=== PATIENT | male | born 1940 | race Caucasian/White ===

== ENCOUNTER 2020-09-28 14:24 | Emergency (ER) | payer MEDICARE, BC, SELFPAY ==
[2020-09-28 15:01] VITALS: BP 138/81; PULSE 64; RESP 18; TEMP 36.9; O2SAT 98; BMI 24.4
--- NOTE | 2020-09-28 17:48 | XRR_ITS ---
PROCEDURE INFORMATION: Exam: XR Left Hip Exam date and time: 09/28/2020 5:48 PM Age: 80 years old Clinical indication: Hip pain; Left hip; Additional info: L hip pain TECHNIQUE: Imaging protocol: XR Left hip. Views: 2 or 3 views hip with pelvis when performed. COMPARISON: No relevant prior studies available. FINDINGS: Bones/joints: No fractures. Unremarkable joint alignment. 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 No significant joint space loss. Negative osteonecrosis. No lytic lesion. Soft tissues: Unremarkable. Vasculature: Scattered atherosclerosis. XR/XR hip LT 2-3V wo/w pel* [id number] IMPRESSION: No acute abnormality.
[2020-09-28 18:14] LABS: Basophils # 0.1 10^3/uL (0.0-0.1); Basophils % 0.6 %; Eosinophils # 0.3 10^3/uL (0.0-0.8); Eosinophils % 3.6 %; Hematocrit 51.8 % (42.0-52.0); Hemoglobin 17.1 g/dL (11.7-16.6); Lymphocytes # 3.4 10^3/uL (0.8-4.8); Lymphocytes % 38.5 %; Mean Corpuscular Hemoglobin 33.9 pg (28.0-34.0); Mean Corpuscular Volume 102.6 fL (80-94); Mean Platelet Volume 10.5 fL (7.4-10.4); Monocytes # 0.6 10^3/uL (0.2-0.9); Monocytes % 6.4 %; Neutrophils # 4.45 10^3/uL (1.8-7.7); Neutrophils % 50.7 %; Nucleated Red Blood Cells % 0 %; Platelet Count 187 10^3/cmm (130-400); Red Blood Count 5.05 10^6/uL (4.1-5.3); Red Cell Distribution Width 12.6 % (12.1-15.1); White Blood Count 8.8 10^3/uL (4.0-10.0)
[2020-09-28 18:35] LABS: Alanine Aminotransferase 29 U/L (0-41); Albumin Level 4.3 g/dL (3.5-5.2); Alkaline Phosphatase 88 IU/L (40-130); Aspartate Amino Transferase 30 U/L (0-40); Blood Urea Nitrogen 23 mg/dL (8-23); Calcium 9.3 mg/dL (8.5-10.5); Carbon Dioxide 29 mmol/L (22-29); Chloride 101 mmol/L (98-107); Globulin 4.4 g/dL (1.3-4.6); Glucose 71 mg/dL (65-115); Osmolality Calculated 288 mOsm/kg (285-295); Sodium 138 mmol/L (136-145); Total Bilirubin 0.6 mg/dL (0.15-1.2); Total Protein 8.7 g/dL (6.6-8.7)
--- NOTE | 2020-09-28 18:39 | W.ED.EXTPRO ---
HPI - Extremity Problem General: Chief complaint: Extremity Problem,Nontraumatic Stated complaint: Sharp Pains in Back (2 wks) Trouble Walking Time Seen by Provider: 09/28/20 18:24 History of Present Illness: HPI Narrative: Patient is a 80-year-old male comes to the ED with lower back pain that radiates down into the left leg. He says symptoms started approximately 2 weeks ago. Patient says he has a history of sciatica and says that this feels a lot like his past sciatica. He denies any injury, accident or trauma to cause acute pain. He rates his current pain a 5 out of 10. He is able to ambulate but says it is painful. Denies any cauda equina symptoms. Associated symptoms: Deny chest pain, fever(s) or rash Review of Systems Const: Denies: fever(s), chills or fatigue Eyes: Denies: change in vision or eye discomfort ENMT: Denies: throat pain, odynophagia, nasal discharge or nasal congestion Card: Denies: chest pain, palpitations, edema, swelling of feet/ankles, dyspnea on exertion or orthopnea Resp: Denies: dyspnea, productive cough or non-productive cough GI: Denies: abdominal pain, nausea, vomiting, diarrhea, constipation or hematochezia : Denies: flank pain, difficulty urinating, dysuria or hematuria Musc: Reports: back pain; Denies: neck pain or extremity swelling Skin/Breast: Denies: rash or new lesions Neuro: Denies: headache(s), numbness in extremities or weakness in extremities Physical Exam Narrative: EXAM NARRATIVE: Patient is a healthy and nontoxic-appearing 80-year-old male who appears in no acute distress or pain. Const: COMMON NORMALS: no acute distress, patient oriented x3, healthy appearing and alert GENERAL APPEARANCE: cooperative and comfortable HENMT: COMMON NORMALS: normocephalic HEAD & SCALP: normocephalic MOUTH: Normal oral and palatal mucosa present THROAT: posterior oropharynx normal and uvula midline Neck/C-Spine: COMMON NORMALS: supple GENERAL: Yes normal visual inspection Resp: COMMON NORMALS: normal respiratory effort, No retractions, No use of accessory muscles and clear to auscultation bilaterally AUSCULTATION: clear to auscultation bilaterally Cardio: COMMON NORMALS: regular rate, regular rhythm, S1 normal heart sound present, S2 normal heart sound present, No gallops present (Cardio), No clicks present (Cardio), No murmurs present (Cardio) and Peripheral pulses 2+ throughout RATE: regular rate RHYTHM: regular rhythm HEART SOUNDS: S1 normal heart sound present and S2 normal heart sound present PERIPHERAL PULSES: Peripheral pulses 2+ throughout GI: COMMON NORMALS: Normal to inspection, nondistended, normoactive bowel sounds present, Soft to palpation, non-tender and no masses PALPATION: Yes Soft to palpation : COMMON NORMALS: Yes no CVA tenderness BLADDER/KIDNEY EXAM: Yes no CVA tenderness Back/Pelvis: COMMON NORMALS: no CVA tenderness LUMBAR SPINE/LOWER BACK: Yes paraspinal muscle tenderness Lumbar paraspinal muscle tenderness: left left lumbar paraspinal muscle tenderness: L4 and L5 and Yes straight leg raise positive left Extremity: COMMON NORMALS: normal to inspection Neuro: COMMON NORMALS: patient oriented x3 and moves all extremities SENSORIUM/ORIENTATION: Yes alert Skin: GENERAL SKIN EXAM: dry skin Course Vital Signs: Vital signs: Vital Signs Temperature 98.4 F 09/28/20 15:01 Pulse Rate 61 09/28/20 19:08 Respiratory Rate 18 09/28/20 19:08 Blood Pressure 157/86 09/28/20 19:08 Pulse Oximetry 97 09/28/20 19:08 MDM - Extremity (Nontraumatic) MDM Narrative: Medical decision making narrative: Patient is a 80-year-old male comes to the ED with lower back pain with pain radiating down left leg. Patient has had sciatica pain similar to this in the past. Denies any acute injury or trauma to cause pain. Denies cauda equina symptoms. Exam findings remarkable for left lumbar back tenderness along with a positive left straight leg test. CBC and CMP were unremarkable. Left hip x-ray showed no acute fractures or findings. Patient diagnosed with lumbar radiculopathy and he was given a dose of Toradol and Decadron while here in the ED. Patient was discharged home with a prescription for [place] 5/325 mg 8 tablets, cyclobenzaprine and Medrol Dosepak. I placed an order with case management for patient to be referred to Dr. Stanley for further evaluation of lumbar radiculopathy. Return to ED precautions given. Told patient that rn case manager will be contacting the next several days set up an appointment with Dr. Stanley. Patient understood and agreed with plan. Lab Data: Attestation: I reviewed the patient's lab results. Labs: Lab Results 09/28/20 09/28/20 Range/Units 18:07 18:07 WBC 8.8 (4.0-10.0) 10^3/ uL RBC 5.05 (4.1-5.3) 10^6/u L Hgb 17.1 H (11.7-16.6) g/dL Hct 51.8 (42.0-52.0) % MCV 102.6 H (80-94) fL MCH 33.9 (28.0-34.0) pg MCHC 33.0 (30.0-36.0) g/dL RDW 12.6 (12.1-15.1) % Plt Count 187 (130-400) 10^3/c mm MPV 10.5 H (7.4-10.4) fL Neut % (Auto) 50.7 % Lymph % (Auto) 38.5 % Lyman % (Auto) 6.4 % Eos % (Auto) 3.6 % Baso % (Auto) 0.6 % Neut # (Auto) 4.45 (1.8-7.7) 10^3/u L Lymph # (Auto) 3.4 (0.8-4.8) 10^3/u L Lyman # (Auto) 0.6 (0.2-0.9) 10^3/u L Eos # (Auto) 0.3 (0.0-0.8) 10^3/u L Baso # (Auto) 0.1 (0.0-0.1) 10^3/u L Nucleated RBC % (a uto) 0 % Nucleated RBCs # 0.0 /100WBC Sodium 138 (136-145) mmol/L Potassium 4.4 (3.5-5.1) mmol/L Chloride 101 (98-107) mmol/L Carbon Dioxide 29 (22-29) mmol/L Anion Gap 12.4 (5-19) BUN 23 (8-23) mg/dL Creatinine 1.1 (0.7-1.2) mg/dL GFR Calculation Not Reportable Glucose 71 (65-115) mg/dL Calculated Osmolal ity 288 (285-295) mOsm/k g Calcium 9.3 (8.5-10.5) mg/dL Total Bilirubin 0.6 (0.15-1.2) mg/dL AST 30 (0-40) U/L ALT 29 (0-41) U/L Alkaline Phosphata se 88 (40-130) IU/L Total Protein 8.7 (6.6-8.7) g/dL Albumin 4.3 (3.5-5.2) g/dL Globulin 4.4 (1.3-4.6) g/dL Imaging Data^: Xray Ortho: Attestation: I personally reviewed and interpreted this imaging study as follows: My impression: Left hip x-ray?no acute fractures or findings. Radiologist's impression: [place] [address] [id number] ReportSigned Patient: Bibi Alfaro #: [id number]: 1940cct#:[id number]/Sex: 80 / MADM Date: 09/28/20Loc: ERRoom/Bed:Attending Dr: Ordering Provider/Ordering MD: Jason Perales DO Date of Service: 09/28/20 Procedure(s): XR hip LT 2-3V wo/w pel* [id number] Accession Number(s): [id number] Report Number: [id number] PROCEDURE INFORMATION: Exam: XR Left Hip Exam date and time: 09/28/2020 5:48 PM Age: 80 years old Clinical indication: Hip pain; Left hip; Additional info: L hip pain TECHNIQUE: Imaging protocol: XR Left hip. Views: 2 or 3 views hip with pelvis when performed. COMPARISON: No relevant prior studies available. FINDINGS: Bones/joints: No fractures. Unremarkable joint alignment. 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 No significant joint space loss. Negative osteonecrosis. No lytic lesion. Soft tissues: Unremarkable. Vasculature: Scattered atherosclerosis. XR/XR hip LT 2-3V wo/w pel* [id number] IMPRESSION: No acute abnormality. Dictated By:Francisco BaileyinSsammy By:Rebecca Bailey Date/Time:09/28/202326DD/ 24 Discharge Plan Discharge Patient Disposition: Home Clinical Impression: Lumbar radiculopathy Condition: Stable Prescriptions: New Medrol (Bj) 4 mg tablets,dose pack See Rx Instructions .ROUTE .COMPLEX Qty: 21 RF: 0 cyclobenzaprine 10 mg tablet 10 mg PO BID PRN (Reason: muscle spasm) Qty: 15 RF: 0 Discharge Orders: Discharge ED (Routine); Ordered 09/28/20 Ordered By: Seferino Kam Discharge Diet: Regular Discharge Activity: Increase activity as tolerated Patient Instructions: Lumbar Radiculopathy (ED), Opioid Safety Activity Restrictions/Additional Instructions: Follow-up with medical provider as directed. Case management should be contacting you in the next several days to set up an appointment with Dr. Stanley the orthospine doctor. Take medications as prescribed. Stretch lower back left leg daily, apply cold pack or heat to help with symptoms as well. Massaging lower back can also provide some relief. Take ibuprofen and/or Tylenol per bottle instruction to help with pain as well. Return to the ER or your medical provider if condition worsens. Please read and understand discharge instructions. Thank you for choosing [facility] for your healthcare needs today. Please realize this is an emergency room and that we are providing you with a medical screening exam and this may not be complete and all inclusive of all the testing and or work up that you may need to determine your ailment or severity of your illness. It is very important that you follow up as instructed or that you return to the Emergency Department should you have concerns or if your condition changes or worsens in any way. Coding Level of Care Code ED Exercise Physiologist Certified for Michell Willis Exam Comprehensive
[2020-09-28 18:58] LABS: Anion Gap 12.4 (5-19); Potassium 4.4 mmol/L (3.5-5.1)
[2020-09-28] MEDS: ketorolac 30 mg/mL INJ IVP (19:02)
[2020-09-28] MEDS: dexamethasone 4 mg/mL INJ 10 MG IVP (19:03)
[2020-09-28 19:08] VITALS: BP 157/86; PULSE 61; RESP 18; O2SAT 97
--- NOTE | 2020-09-29 13:26 | DCPLANNER ---
Steel Burner received message to schedule follow up with Dr. Stanley at Ortho clinic for lumar radiculopathy. Called ortho clinic and spoke to Humera and provided her needed information. She will contact patient with appointment details.
--- NOTE | 2020-10-06 07:26 | DCPLANNER ---
Patient has a follow up appointment scheduled for , October 15, 2020 at 9:[address] Stanley at [facility]. Clinic will call patient with appointment information.
--- NOTE | 2020-11-20 12:17 | DCPLANNER ---
Patient had a follow up appointment scheduled for 10.15.20 with ortho - patient did attend appointment.
== END 2020-09-28 19:27 | disposition home or self-care (01) ==
PROVIDERS: Family Medicine; Emergency Provider Physician Assistant
DX: M54.16 Radiculopathy, lumbar region (principal)
CPT/HCPCS: 73502; 80053; 85025; 96374; 96375; 99283; J1100; J1885

== ENCOUNTER → 2020-10-15 09:23 | Outpatient (BNVA) | payer MEDICARE, BC, SELFPAY | PROVIDERS: Referring Provider Physician Assistant; Visit Provider Orthopaedic Surgery | DX: M54.16 Radiculopathy, lumbar region (principal); M54.9 Dorsalgia, unspecified; M51.26 Other intervertebral disc displacement, lumbar region | CPT/HCPCS: 72110 ==

== ENCOUNTER → 2020-10-23 10:24 | Outpatient (BNVA) | payer MEDICARE, SELFPAY | PROVIDERS: Referring Provider Orthopaedic Surgery; Visit Provider Anesthesiology Pain Medicine | DX: M47.816 Spondylosis without myelopathy or radiculopathy, lumbar region (principal); M51.16 Intervertebral disc disorders with radiculopathy, lumbar region; M79.605 Pain in left leg; Z79.891 Long term (current) use of opiate analgesic | CPT/HCPCS: 99204 ==

== ENCOUNTER → 2020-10-28 13:15 | Outpatient (BNVA) | payer MEDICARE, BC, SELFPAY | PROVIDERS: Visit Provider Anesthesiology Pain Medicine | DX: M51.16 Intervertebral disc disorders with radiculopathy, lumbar region (principal); Z79.891 Long term (current) use of opiate analgesic | CPT/HCPCS: 64483; 64484; J1100; J3490 ==

== ENCOUNTER 2020-10-29 07:41 | Outpatient (CLI) | payer MEDICARE, BC, SELFPAY ==
--- NOTE | 2020-10-29 08:00 | MR_ITS ---
WS: [id number] MRI LUMBAR SPINE NONCONTRAST TECHNIQUE: Sagittal T1, T2 and STIR imaging. Axial T1 and T2 imaging. CLINICAL INFORMATION: M54.9 - Dorsalgia, unspecified COMPARISON: None. FINDINGS: Mild lumbar curve. No acute compression. No high-grade central canal stenosis. L1-L2: Normal. L2-L3: Minimal annular bulging. Slight narrowing of the subarticular recess bilaterally with encroach ment traversing L3 nerve roots. Moderate facet arthropathy. Foramen are patent. L3-L4: Mild annular bulging with slight narrowing of the right subarticular recess. Mild right and no significant left foraminal narrowing. Moderate facet arthropathy. L4-L5: Mild annular bulging with mild central canal stenosis. Small left subarticular protrusion impi nges the left subarticular recess and traversing left L5 nerve root. Ossified left intraligamentous s ynovial cyst contributes to impingement on the left subarticular recess. Associated ligamentum flavum hypertrophy and osteophytic ridging. Moderate facet arthropathy. Mild right and no significant left foraminal narrowing. L5-S1: Mild disc bulging and osteophytic ridging. Slight contact of the traversing S1 nerve roots wit hout significant impingement. Moderate facet arthropathy with ligament flavum hypertrophy. Small face t effusions. Foramen are patent. Left renal cyst measuring 4.1 cm. Mild central canal stenosis in the cervical spine with disc bulging worse at C3-C4 C5-C6 C6-C7 and C7 -T1 seen on the tile ditcher imaging. MR/MR lumbar spine wo con* [id number] IMPRESSION: 1. Mild lumbar curve. No acute compression. No high-grade central canal stenos is. 2. Shallow left subarticular disc protrusion in combination with left facet o ssified intraligamentous synovial cyst impinges the traversing left L5 nerve ro ot in the subarticular recess. Mild central canal stenosis with left to right m ass effect on the thecal sac 3. Minimal annular bulging L3-4 with slight impingement on the right subarticu lar recess and encroachment traversing right L4 nerve root. 4. Disc osteophytic ridging L5-S1 slightly contacts the traversing S1 nerve ro ots without significant impingement. 5. Moderate facet arthropathy L4-L5 and L5-S1.
== END 2020-10-29 07:42 | disposition home or self-care (01) ==
PROVIDERS: Visit Provider Orthopaedic Surgery
DX: M47.816 Spondylosis without myelopathy or radiculopathy, lumbar region (principal); M47.817 Spondylosis without myelopathy or radiculopathy, lumbosacral region; M25.78 Osteophyte, vertebrae; M51.26 Other intervertebral disc displacement, lumbar region
CPT/HCPCS: 72148

== ENCOUNTER → 2020-11-12 13:35 | Outpatient (BNVA) | payer MEDICARE, BC, SELFPAY | PROVIDERS: Visit Provider Anesthesiology Pain Medicine | DX: M47.816 Spondylosis without myelopathy or radiculopathy, lumbar region (principal); M51.16 Intervertebral disc disorders with radiculopathy, lumbar region; M79.605 Pain in left leg; Z79.891 Long term (current) use of opiate analgesic | CPT/HCPCS: 99214 ==

== ENCOUNTER → 2020-11-16 10:50 | Outpatient (BNVA) | payer MEDICARE, BC, SELFPAY | PROVIDERS: Visit Provider Orthopaedic Surgery | DX: Z01.812 Encounter for preprocedural laboratory examination (principal); Z20.822 Contact with and (suspected) exposure to COVID-19 | CPT/HCPCS: 87635 ==

== ENCOUNTER → 2020-12-01 09:03 | Outpatient (BNVA) | payer MEDICARE, SELFPAY | PROVIDERS: Visit Provider Orthopaedic Surgery | DX: Z01.812 Encounter for preprocedural laboratory examination (principal); Z20.822 Contact with and (suspected) exposure to COVID-19 | CPT/HCPCS: 87635 ==

== ENCOUNTER → 2020-12-21 09:41 | Outpatient (BNVA) | payer MEDICARE, SELFPAY | PROVIDERS: Visit Provider Orthopaedic Surgery | DX: Z01.812 Encounter for preprocedural laboratory examination (principal); Z20.822 Contact with and (suspected) exposure to COVID-19 | CPT/HCPCS: 87635 ==

== ENCOUNTER 2020-12-25 08:28 | Day surgery (SDC) | payer MEDICARE, SELFPAY ==
[2020-12-24 14:31] VITALS: BMI 23.7
[2020-12-25] VITALS (8 sets, daily range): BP systolic 121–134; BP diastolic 58–74; PULSE 69–73; RESP 14–18; TEMP 36.4–36.9; O2SAT 96–100
--- NOTE | 2020-12-25 | SCC_ITS ---
Procedure Done: Left L4/5 laminectomy with partial facetectomy 6.8 seconds of fluoroscopic guidance, for a cumulative dose of 1.63 mGy, was provided to Dr. Stanley by the radiology department. C-arm images of the lumbar spine were saved for the patient's permanent record. MAURICE
--- NOTE | 2020-12-25 | XR_ITS ---
WS: [id number] Lumbar spine, C-arm fluoroscopy, 12/25/2020 Clinical Data: Intervetebral disc disorder Comparison: None. Findings: Dr. Stanley decompressed the L4-L5 disc level. XR/XR lumbar spine 1V port [id number] Impression: L4-L5 decompression.
--- NOTE | 2020-12-25 09:07 | P.HP_ITS ---
Providers/Chief Complaint Chief Complaint: Intervertebral disc disorder History of Present Illness Seferino Alfaro is a 80 year old male Details: New 80 year old male here for evaluation of back pain that started 3 weeks ago after lifting an attachment to a tractor. He states when he turns he feels pain in his left hip. Chief Complaint: left hip pain Onset: 3 weeks Duration: weeks Characteristics: numbness, hot,cold , intermettien Severity: 02/10 Location: left hip Radiating symptoms: lateral left lower extremity Aggravating factors: walkig, standing, walking heel to toe, standing straight Alleviating factors: tyleon ibuprofen, heat , message with short term relief, medrol jose with relief Neuro deficits: denies incontinence of bowel/bladder, saddle anesthesia. Prior tx: ED Review of Systems Narrative: General ROS: negative for weight changes, fever ENT ROS: negative for nasal congestion, drainage or bleeding, sore throat, dysphagia or ear pain Eyes: PERRL Hematological and Lymphatic ROS: negative for swollen glands or abnormal bleeding Endocrine ROS: negative for polyuria/polydpsia or new changes in weight Respiratory ROS: negative for cough, shortness of breath, or wheezing Cardiovascular ROS: negative for chest pain or dyspnea on exertion Gastrointestinal ROS: negative for reflux, abdominal pain, change in bowel habits, or black or bloody stools Musculoskeletal ROS: negative for back pain, neck pain, or joint pain or swelling except for current problem Neurological ROS: negative for TIA or stoke symptoms Skin: no rashes Medications/Allergies Home Medications Medication Instructions Recorded Confirmed Last Taken Type gabapentin 300 mg capsule 300 mg PO TID #90 cap 11/12/20 12/25/20 12/11/20 Rx hydrocodone 5 mg-acetaminophen 325 1 tab PO Q4H PRN 7 Days #30 tab 11/26/20 12/25/20 12/18/20 Rx mg tablet Allergies Allergy/AdvReac Type Severity Reaction Status Date / Time No Known Allergies Allergy Verified 12/24/20 14:28 Vitals/I&O/Wt Last Vital Signs Temp 98.4 F 12/25/20 08:40 Pulse 69 12/25/20 08:40 Resp 18 12/25/20 08:40 BP 130/74 12/25/20 08:40 Pulse Ox 96 12/25/20 08:40 Weight last 48 hrs Weight 175 lb Physical Exam Narrative: EXAM NARRATIVE: CONSTITUTIONAL: The patient is a normal appearing [] in no apparent distress. GENERAL: Patient in no acute distress. CARDIAC: Regular rate and rhythm. CHEST: Normal inspiratory effort, normal respiratory rate. ABDOMEN: Soft and nontender. SKIN: Clear, warm and intact. NEURO?PSYCH: The patient is alert and oriented to person, place and time. Sensorv /SILT Motor StrengthShoulder abduction C5 5/5Wrist extension C6 5/5Elbow extension C7 5/5Hand Commercial Real Estate Associate C8 5/5Finger abduction T15/5 Radial/ Ulnar/ Median n intact LowerSensory (SILT)Motor StrengthHin flexion L2/3Ant/inner thigh 5/5Hip adduction L2/3 5/5Knee extension L4 Lat thigh, 5/5Toe dorsiflexion L5 5/5Ankle dorsiflexion L5/ B12Guynugv flexion S1 5/5 DTRBleeps 2+Triceps 2+Brachioradialis 2+Patellar 2+Achilles 2+ MUSCULOSKELETAL: [] UPPEREXTREMITIES: The patient had full active ROM in fingers, wrist, elbow, and shoulder. The patient demonstrated ability to fully flex/extend/abduct/adduct fingers, make ok sign, cross 2nd/3rd digits, extend 1st digit fully.. Radial pulse 2+, CR<2 seconds. LOWER EXTREMITIES: Pt has full, active ROM of toes, ankle, knee, and hip. Dorsalis pedis/posterior tibialis pulses 2+, CR<2 seconds. SPINE: Skin warm, dry, intact. A&P Assessment and plan (1) Lumbar stenosis with neurogenic claudication: Left L4/5 MIS decompression Status: Acute Attestations Medical Necessity Statement*: failed conservative tx Coding Level of Care Code Acute Inside Sales Recruiter for g Fwd Diagnoses Lumbar stenosis with neurogenic claudication M48.062
--- NOTE | 2020-12-25 09:07 | W.PM.OPSUD ---
Surgery/Procedure H&P Update DATE OF PROCEDURE: December 25, 2020 DATE H&P PERFORMED: 12/25/20 PREOP DIAGNOSIS: lumbar stenosis PLANNED PROCEDURE: Operation Date: 12/25/20 09:55 Proposed Procedures p L4-5 min invasive decompressiom 95983 M51.16(Not Applicable) - Joseph Stanley DO
[2020-12-25] MEDS: sodium chloride 0.9% 1,000 ML 30 ML IV (09:15)
--- NOTE | 2020-12-25 09:17 | P.ANESASSM_ITS ---
Pre-Anesthetic Assessment Pre-Anesthetic Assessment: Height/Weight: Height 1.83 m Weight 79.379 kg Temp Pulse Resp BP Pulse Ox 98.4 F 69 18 130/74 96 12/25/20 08:40 12/25/20 08:40 12/25/20 08:40 12/25/20 08:40 12/25/20 08:40 Preop Diagnosis: lumbar stenosis Proposed Procedure: Operation Date: 12/25/20 09:55 Proposed Procedures p L4-5 min invasive decompressiom 06854 M51.16(Not Applicable) - Joseph Stanley, DO Was Beta Tommy taken within 24 hours: N/A Was Clonidine taken within 24 hours: N/A Last intake: Intake Last Liquid Date 12/24/20 Last Liquid Time 18:00 Last Solid Date 12/24/20 Last Solid Time 18:00 Social: Social History: No alcohol and No tobacco Exam: Pre-Anes Outpt Exam: alert, oriented x 3, clear to auscultation radames aterally and regular rate & rhythm Airway: Submandibular: WNL Cervical ROM: WNL MP: 2 Dentition: Loose History/ROS: No significant history except as noted Musc/skel: Musc/skel: Lower Back Pain Anesthetic Plan: ASA status: 2 Anesthesia: General Risk of > 500 ml blood loss (7ml/kg in children): No Meds/Allergies Current Medications: Current Medications Generic Name Dose Route Start Last Admin Trade Name Freq PRN Reason Stop Dose Admin Sodium Chloride 1,000 mls @ 30 ml s/hr 12/25/20 09:00 12/25/20 09:15 Sodium Chloride 0.9% IV 12/26/20 08:59 30 mls/hr .Q24H PENNY Administration Data Anesthesia Cardiac Studies: No Data to Display
--- NOTE | 2020-12-25 10:02 | P.OP_ITS ---
Operative Report Date of procedure: December 25, 2020 Pre-op Diagnosis: lumbar stenosis Post-op diagnosis: same Procedure Done: Left L4/5 laminectomy with partial facetectomy Surgeon: Joseph Stanley Community Service Director: Basil Rosado Community Service Director: Basil RICHARDSON was present to assist in this case. He helped with positioning the patient. He helped with suction underneath the microscope helped with retraction. And assisting while underneath a microscope. This was required for his expertise using the microscope. He also assisted with closure of the wound and dressing.
[2020-12-25] MEDS: HYDROcodone-acetaminophen 5-325 mg Tablet 1 TAB PO (11:24)
== END 2020-12-25 11:45 | disposition home or self-care (01) ==
PROVIDERS: Visit Provider Orthopaedic Surgery
PROC: (CPT 63005; principal; 2020-12-25 09:45)
DX: M48.062 Spinal stenosis, lumbar region with neurogenic claudication (principal); M51.16 Intervertebral disc disorders with radiculopathy, lumbar region
CPT/HCPCS: 63047; 72020; 76000; 96365; J0330; J0690; J1100; J1170; J2310; J2370; J2405; J2704; J7030

== ENCOUNTER 2021-03-15 07:38 | Outpatient (CLI) | payer MEDICARE, SELFPAY ==
[2021-03-15 07:52] VITALS: BMI 23.7
[2021-03-15 08:00] VITALS: BP 164/84; PULSE 60; RESP 16; TEMP 36.6; O2SAT 98
[2021-03-15 08:52] VITALS: BP 162/91; PULSE 52; RESP 16; TEMP 36.6; O2SAT 99
[2021-03-15 09:58] VITALS: BP 166/85; PULSE 52; RESP 16; TEMP 36.8; O2SAT 99
== END 2021-03-15 07:39 | disposition home or self-care (01) ==
LOC: OPS 07:40
PROVIDERS: Visit Provider Nurse Practitioner Family
DX: U07.1 COVID-19 (principal)
CPT/HCPCS: 96365

== ENCOUNTER → 2024-09-24 08:28 | Outpatient (BNVA) | payer MEDICARE, BC, SELFPAY | PROVIDERS: PCP Family Medicine; Visit Provider Family Medicine | DX: Z13.6 Encounter for screening for cardiovascular disorders (principal); R97.20 Elevated prostate specific antigen [PSA]; Z51.81 Encounter for therapeutic drug level monitoring | CPT/HCPCS: 80053; 80061; 84153; 85025 ==

== ENCOUNTER → 2024-11-15 10:46 | Outpatient (BNVA) | payer MEDICARE, BC, SELFPAY | PROVIDERS: PCP Family Medicine; Visit Provider Family Medicine | DX: N40.0 Benign prostatic hyperplasia without lower urinary tract symptoms (principal) | CPT/HCPCS: 84153 ==

== ENCOUNTER → 2025-01-16 12:55 | Outpatient (BNVA) | payer MEDICARE, BC, SELFPAY | PROVIDERS: PCP Family Medicine; Visit Provider Family Medicine | DX: E55.9 Vitamin D deficiency, unspecified (principal) | CPT/HCPCS: 80053; 80061; 83036; 84153; 85025 ==